=== PATIENT | male | born 1975 | race Caucasian/White ===

== ENCOUNTER 2020-10-13 11:01 | Observation (INO) | payer OTHER ==
[2020-10-13] MEDS ORDERED: KETOROLAC 15 MG/ML 1 ML VIAL IM STA (11:25)
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
--- NOTE | 2020-10-13 12:21 | CT ---
EXAMINATION TYPE: CT brain ulises ellsworth DATE OF EXAM: 10/13/2020 COMPARISON: NONE HISTORY: Fall today with possible injury, headache and neck pain. CT DLP: 1542.8 mGycm. Automated Exposure Control for Dose Reduction was Utilized. TECHNIQUE: CT scan of the head and cervical spine are performed without contrast. FINDINGS: There is no acute intracranial hemorrhage or midline shift identified. The ventricles an d sulci are within normal limits in size for patient's age. The calvarium is intact. Tiny midline oc cipital acute scalp hematoma axial image 50. Tiny right frontal acute scalp hematoma axial image 48. The globes are intact and the visualized sinuses are clear. Nasal septum is deviated to left of midli ne. Cervical spine is visualized in its entirety from C1 through upper thoracic levels and demonstrates s atisfactory alignment without evidence of acute fracture or dislocation. Prevertebral soft tissue ap pears within normal limits. The C1-C2 articulation is within normal limits on the coronal images. V ertebral body heights are maintained. Moderate spurring and disc space narrowing C5-C6 and C6-C7 leve ls. Posterior spurring effaces the anterior thecal sac at these levels on sagittal images. Thyroid gl and is within normal limits. Lung apices show no pneumothorax. IMPRESSION: 1. There is no acute fracture or dislocation evident in the cervical spine. 2. No acute intracranial hemorrhage or midline shift is seen.
--- NOTE | 2020-10-13 12:35 | CT ---
EXAMINATION TYPE: CT lumbar spine wo con DATE OF EXAM: 10/13/2020 12:08 PM COMPARISON: None. HISTORY: Fall today with possible injury. Neck and low back pain. CT DLP: 677.9 mGycm Automated exposure control for dose reduction was used. Unenhanced CT of the lumbar spine was performed. Bone and soft tissue window settings are submitted as well as coronal and sagittal reconstructions. There are 5 lumbar type vertebra identified. There is age-indeterminate suspected acute fracture defo rmity through the anterior superior L3 vertebra small ossific fracture fragment extending anteriorly into the right of midline. There is mild height loss estimated 20-30% along the anterior margin. Post erior vertebral body margin and height are maintained. Alignment is stable and satisfactory. Small po sterior disc herniation L2-L3 and L3-L4 levels effaces the anterior thecal sac on sagittal images candido ng with axial images 32 and 45 respectively. Additional posterior disc herniations mildly effaces ant erior thecal sac at L4-L5 and L5-S1 levels. Paraspinal muscle bulk is maintained. IMPRESSION: Age-indeterminate but suspected acute avulsion type fracture from the anterior superior L 3 endplate with mild height loss estimated 20-30%.
--- NOTE | 2020-10-13 13:29 | XR ---
EXAMINATION TYPE: XR Hip RT and AP Pelvis DATE OF EXAM: 10/13/2020 COMPARISON: NONE HISTORY: Pain after fall injury. TECHNIQUE: A single AP view of the pelvis is obtained. Two views of the right hip are obtained. FINDINGS: There is no acute fracture/dislocation evident in the pelvis. The hip and sacroiliac join ts appear symmetric and felt within normal limits. Pubic symphysis is intact. The overlying soft tis shruthi appears unremarkable. Two views of right hip show no acute fracture or dislocation. No focal lytic or sclerotic lesion see n in the proximal right femur. The overlying soft tissue is unremarkable. IMPRESSION: There is no acute fracture or dislocation in the pelvis or right hip.
[2020-10-13] MEDS ORDERED: ONDANSETRON 4 MG/2 ML VIAL IVP PRN (14:15)
[2020-10-13] MEDS ORDERED: traMADol 50 MG TAB PO PRN (14:15)
[2020-10-13] MEDS ORDERED: NALOXONE 0.4 MG/ML 1 ML VIAL IV PRN (14:15)
[2020-10-13] MEDS ORDERED: ACETAMINOPHEN TAB 325 MG TAB PO PRN (14:15)
[2020-10-13] MEDS ORDERED: CYCLOBENZAPRINE 10 MG TAB PO PRN (14:18)
[2020-10-13] MEDS: HYDROcodone/APAP 5-325MG 1 EACH TAB PO PRN ×2 (14:56→21:45)
[2020-10-13 15:03] LABS: Basophils % (A) 0 %; Eosinophils # (A) 0.1 k/uL (0-0.7); Eosinophils % (A) 1 %; HCT 46.1 % (39.0-53.0); Lymphocytes # (A) 1.5 k/uL (1.0-4.8); Lymphocytes % (A) 26 %; MCH 31.7 pg (25.0-35.0); MCHC 34.7 g/dL (31.0-37.0); MCV 91.2 fL (80.0-100.0); Mean Platelet Volume 6.9; Monocytes # (A) 0.4 k/uL (0-1.0); Monocytes % (A) 6 %; Neutrophils # (A) 3.8 k/uL (1.3-7.7); Neutrophils % (A) 64 %; Platelet Count 216 k/uL (150-450); RBC 5.06 m/uL (4.30-5.90); RDW 11.9 % (11.5-15.5); WBC 5.9 k/uL (3.8-10.6)
[2020-10-13 15:10] LABS: ALT 13 U/L (4-49); AST 21 U/L (17-59); African American GFR (CKD) >90 (>60 ml/min/1.73 sqM); Albumin 4.4 g/dL (3.5-5.0); Alkaline Phosphatase 88 U/L (38-126); Anion Gap 7 mmol/L; Blood Urea Nitrogen 11 mg/dL (9-20); Calcium 9.6 mg/dL (8.4-10.2); Carbon Dioxide 26 mmol/L (22-30); Chloride 104 mmol/L (98-107); Glucose 101 mg/dL (74-99); Non-African American GFR(CKD) >90 (>60 ml/min/1.73 sqM); Potassium 4.6 mmol/L (3.5-5.1); Sodium 137 mmol/L (137-145); Total Bilirubin 0.6 mg/dL (0.2-1.3); Total Protein 6.9 g/dL (6.3-8.2)
[2020-10-13] MEDS ORDERED: GABAPENTIN 300 MG CAP PO STA (15:48)
--- NOTE | 2020-10-13 17:46 | MR ---
EXAMINATION TYPE: MR lumbar spine wo con DATE OF EXAM: 10/13/2020 COMPARISON: CT scan 10/13/2020 HISTORY: Low back pain, L3 fracture, right leg weakness. TECHNIQUE: T1 and T2 axial and sagittal images of the lumbar spine are submitted. FINDINGS: Exam limited by severe patient motion artifact. This results in a limited assessment of the spinal cord on the axial images and sagittal images. No obvious large area of abnormal signal.. [place] nt lesion involving the left iliac bone is not well seen due to motion artifact. At L1-2 there is central disc bulging or broad-based protrusion. There is degenerative disc disease. Neural foramina patent. Mild effacement of thecal sac. At L2-3 there is severe motion artifact limits assessment. Nondiagnostic assessment. A moderate anterior compression fracture L3. Motion artifact limits assessm ent for canal stenosis or retropulsion. At L3-4 there is motion artifact. No obvious disc herniation or canal stenosis. No foraminal encroach ment. At L4-5 there is broad-based disc bulging but no focal herniation or canal stenosis. Mild bilateral f oraminal encroachment. At L5-S1 there is annular tear with facet arthropathy. No Canal stenosis. Central disc bulging. Neura l foramina patent. IMPRESSION: 1. Moderate anterior compression fracture L3. Assessment for retropulsion limited due to extreme vanessa on artifact. 2. Disc bulging L1-2 with effacement of the thecal sac.
[2020-10-13] MEDS: SODIUM CHLORIDE 0.9% 1,000 ML IV SCH (17:56)
[2020-10-13] MEDS: DEXAMETHASONE SOD PHOSPHATE 10 MG/ML 1 ML VIAL IV SCH (17:57)
[2020-10-13] MEDS ORDERED: hydrALAZINE HCL 20 MG/ML 1 ML VIAL IM PRN (18:42)
[2020-10-13] MEDS ORDERED: hydrALAZINE HCL 20 MG/ML 1 ML VIAL IVP PRN ×2 (19:18→20:08)
[2020-10-13] MEDS: KETOROLAC 15 MG/ML 1 ML VIAL IVP PRN (20:25)
[2020-10-14] MEDS: KETOROLAC 15 MG/ML 1 ML VIAL IVP PRN (03:01)
[2020-10-14] MEDS: HYDROcodone/APAP 5-325MG 1 EACH TAB PO PRN ×2 (03:58→19:30)
[2020-10-14] MEDS: SODIUM CHLORIDE 0.9% 1,000 ML IV SCH ×2 (04:02→21:01)
[2020-10-14] MEDS: DEXAMETHASONE SOD PHOSPHATE 10 MG/ML 1 ML VIAL IV SCH (07:56)
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
--- NOTE | 2020-10-14 09:10 | CT ---
EXAMINATION TYPE: CT pelvis wo con DATE OF EXAM: 10/14/2020 COMPARISON: Pelvic and right hip x-ray from yesterday HISTORY: Pain in hips and down legs, recent fall injury CT DLP: 288.8 mGycm Automated exposure control for dose reduction was used. FINDINGS: There is no acute fracture or dislocation in the pelvis or either hip. Symmetric mild axial joint spa ce loss in both hips without significant acetabular spurring. No suspicious joint effusions. Sacroili ac joints are maintained. Pubic symphysis is intact. Prostate gland is not enlarged. No suspicious bowel dilatation. Urinary bladder appears within velia l limits. Small fat-containing right inguinal hernia. No groin adenopathy. Muscle bulk bilateral thig hs is symmetric and within normal limits. IMPRESSION: As above.
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
[2020-10-14] MEDS ORDERED: LACTATED RINGERS 1,000 ML IV ONE (10:55)
[2020-10-14] MEDS ORDERED: fentaNYL (PF) 50 MCG/ML 2 ML AMP ONE (11:03)
[2020-10-14] MEDS ORDERED: IOPAMIDOL M200 10 ML VIAL ONE (11:03)
[2020-10-14] MEDS ORDERED: ROPIVACAINE 5MG/ML 20ML VIAL ONE (11:03)
[2020-10-14] MEDS ORDERED: methylPREDNISolone ACETATE 40 MG/ML 1 ML VIAL ONE (11:03)
--- NOTE | 2020-10-14 11:18 | P.PCN ---
Date of Procedure: 10/14/20 Procedure(s) Performed: PREOPERATIVE DIAGNOSIS: 1- Lumbar Degenerative Disc Diseases 2-Lumbar spondylosis with Facet arthropathy without myelopathy 3-lumbar radiculopathy. 4-right sacroiliitis POSTOPERATIVE DIAGNOSIS: Same as preop diagnosis. PROCEDURE 1. Lumbar epidural steroid injection under fluoroscopic guidance at the L5-S1 level. (Fluoroscopy imaging was available in radiology department) 2. Lumbar epidurogram. 3.right sacroiliac joint steroid injections under fluoroscopy guidance. ANESTHESIA: Local with 1% lidocaine 3 ml and , moderate sedation with intravenous 100 Mcg EBL: Minimal PROCEDURE INDICATION: The patient with low back pain and radiculitis symptoms unresponsive to conservative treatment. Fluoroscopy was used to optimize visualization of the needle placement and to maximize safety. PROCEDURE DESCRIPTION / TECHNIQUE: The patient was seen and identified in the preoperative area. Risks, benefits, complications including but not limited to infections ,bleeding ,allergic reaction to the medications ,nerve damage and not complete pain releife , and alternatives were discussed with the patient. The patient agreed to proceed with the procedure and signed the consent. IV was started, and vital signs were stable. Patient was taken to the OR and time out was completed. The patient was placed in the prone position on procedure table and a pillow was placed under the abdomen to reduce lumbar lordosis. The lumbosacral area was prepped and draped in the usual sterile fashion.ere closely monitored during the procedure. Conscious sedation was used during the procedure to decrease patients anxiety. Vital signs was monitered during the entire procedure. Using anterior-posterior fluoroscopy, the L4-5 interlaminar space was identified and the skin over this site was marked and then infiltrated with 1% lidocaine subcutaneously. Subsequently, a 20-gauge Tuohy epidural needle was inserted and advanced toward the epidural space using the ``Loss of resistance technique and guided by AP and lateral fluoroscopy. The correct needle position in the epidural space was verified with the injection of 2 mL of the water soluble contrast dye Isovue 200 contrast and observing an excellent epidurogram with the epidural spread of the dye, after negative aspiration for blood and CSF and in the absence of paresthesias. Again after negative aspiration, a 6 ml mixture containing 60 mg of Depo-medrol , and 2 ml of preservative free Normal Saline, and 2 ml of preservative free lidocaine 1% solution was injected and a washout of epidurogram was seen. Needle was withdrawn intact, Then under strict sterile technique, I did the right sacroiliac joint the which was identified under fluoroscopy guidance been local infiltration of the skin, and subcu interstitial with lidocaine 1% then 25-gauge Quincke Needle advanced slowly under fluoroscopy and placed in the right sacroiliac joint needle placement confirmed with AP and oblique and lateral view and after appropriate needle placement confirmed and after negative aspiration, or heme , then Ropivacaine 0.5% 3 mL, and 20 mg of Depo-Medrol mixed together and injected in the right sacroiliac joint after negative aspiration patient tolerated the procedure well without any complication.. COMPLICATIONS: None DISPOSITION / PLANS: The patient was placed in a supine position and transferred to the recovery area in a stable condition for observation. There was no evidence of lower extremity motor or sensory deficit after the procedure. Patient was discharged from the recovery room after meeting discharge criteria. Home discharge instructions were given to the patient by the staff. The patient was reexamined prior to discharge. The patient will schedule a follow up in the clinic in 2-4 weeks.
--- NOTE | 2020-10-14 11:55 | FL ---
EXAMINATION TYPE: FL guided pain mgmt statistic DATE OF EXAM: 10/14/2020 CLINICAL HISTORY: Low back and sacroiliac joint pain. TECHNIQUE: Fluoroscopy. COMPARISON: None. FINDINGS: Fluoroscopic guidance was provided during pain relief procedure performed by Dr. Grace . A total of 6 seconds of fluoroscopic time was utilized during the procedure and two spot images ar e acquired. Images acquired shows needle localization at L4 level and sacroiliac joint level with co ntrast injection. IMPRESSION: As Above.
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
[2020-10-15] MEDS: DEXAMETHASONE SOD PHOSPHATE 10 MG/ML 1 ML VIAL IV SCH (09:34)
[2020-10-15] MEDS: SODIUM CHLORIDE 0.9% 1,000 ML IV SCH (09:34)
[2020-10-15] MEDS: HYDROcodone/APAP 5-325MG 1 EACH TAB PO PRN (09:42)
--- NOTE | 2020-10-15 10:11 | P.PN ---
Subjective Progress Note Date: 10/15/20 Principal diagnosis: Low back pain, history of L3 vertebral compression fracture, right-sided sacroiliitis Patient was evaluated today at bedside, he is resting in his hospital bed. She states he has noticed improvement in the low back pain and right sided low back pain/buttock pain. He feels that his legs are moving better since then. Physical therapy will be evaluating patient today. Patient states he did get up with a walker and ambulate to the restroom on his own. He currently denies any numbness or tingling in the lower extremities or upper extremity, changes in bowel or bladder function. Objective - Vital Signs Vital signs: Vital Signs Temp 97.5 F L 10/15/20 04:35 Pulse 63 10/15/20 04:35 Resp 12 10/15/20 04:35 BP 109/70 10/15/20 04:35 Pulse Ox 98 10/15/20 04:35 Intake & Output 10/14/20 10/15/20 10/15/20 18:59 06:59 18:59 Intake Total 300 640 Output Total 1200 1825 Balance -900 -1185 Intake: Intake, IV Titration 300 350 Amount Sodium Chloride 0.9% 1, 300 350 000 ml @ 75 mls/hr IV . [id number] [facility] Rx#:[id number] Oral 290 Output: Urine 1200 1825 Other: Voiding Method Urinal - Exam Gen: AOx3, NAD VSS stable at this time Integument: No obvious skin changes are present throughout the cervical, thoracic or lumbar region. There is no obvious areas of erythema, soft tissue swelling, areas of fluctuance. Palpation: No significant tenderness to palpation involving the cervical and thoracic midline and paraspinal region Mild tenderness with palpation in the L3 midline region, patient also demonstrates discomfort over the SI joint on the right side. No tenderness with palpation of the SI joint on the left-hand side No point tenderness is reproduced with palpation of the bilateral upper extremities, no point tenderness reproducing palpation of the proximal femur, knees, lower leg, foot or ankle bilaterally Vascular status: Radial and ulnar pulses are 2+ bilaterally in the upper extremities Dorsalis pedis pulses are 2+ bilaterally in the lower extremities ROM: Range of motion is intact in all major muscle groups in the bilateral upper and lower extremities. Motion was difficult to assess in the right lower extremity due to the and cuff that was present on the ankle Sensory Exam: Senory exam to light touch is intact C5-T1 Senosry exam to light touch is intact L2-S1 Motor: 55 strength appreciated bilaterally with shoulder abduction, elbow flexion, elbow extension, wrist extension, wrist flexion, finger intrinsics 5 out of 5 strength appreciated left lower extremity, hip flexion, knee extension, knee flexion, plantar flexion, dorsiflexion, EHL, FHL 4-5 strength appreciated right lower extremity, hip flexion, knee extension, knee flexion. 5 out of 5 strength with plantar flexion, dorsiflexion, EHL, FHL Reflexes: 2/4 in all UE and LE Negative Mookie's bilaterally Negative Babinski bilaterally - Labs CBC & Chem 7: 10/13/20 14:45 10/13/20 14:45 Assessment and Plan Assessment: Low back pain, status post L5-S1 epidural injection Right-sided sacroiliitis, status post fluoroscopic steroid injection History of recent fall from standing History of previous L3 vertebral compression fracture, healed and stable No evidence of spinal cord compression Plan: Plan: Patient has continued to improve with the injections he received yesterday. Physical therapy will be evaluating the patient later this morning with gait training No orthopedic surgical intervention recommended at this time Anticipated discharge back to residential today Patient will be instructed utilize the brace as needed with ambulation with walker Other medical record transcriber and recommendations Medications, patient will be discharged on an oral anti-inflammatory and a Medrol Dosepak Time with Patient: Less than 30
[2020-10-15 12:21] VITALS: BP 132/90; PULSE 72; RESP 18; TEMP 98.3
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
--- NOTE | 2020-10-15 15:16 | P.DS ---
Providers Date of admission: 10/13/20 16:07 Attending physician: Zachery Russo DO Consults: 10/13/20 14:16 Consult Physician Routine Consulting Provider: Helio Lewis Consult Reason/Comments: medical consult Do you want consulting provider notified?: Yes 10/14/20 07:48 Consult Physician Routine Consulting Provider: Alda Grace Consult Reason/Comments: possible SI injection Do you want consulting provider notified?: Yes Primary care physician: Stated None Hospital Course: Date of admission: 10/13/2020 Date of discharge: 10/15/2020 Admission diagnosis: Low back pain, right-sided sacroiliitis, history of recent fall, history of L3 vertebral compression fracture Discharge diagnosis: Same Attending physician: Dr. Russo Surgical procedures: L5-S1 epidural steroid injection, right-sided SI joint steroid injection Brief history: Patient is a 45-year-old male who presented to [facility] on 10/13/2020 for evaluation of low back pain after a fall. Currently the shabnam melendez is currently in the [place] long-term, he fell down a few steps. After the fall he noticed increasing pain in his low back. Patient has a history of a vertebral compression fracture at the L3 vertebrae. We were contacted by the emergency room staff, initial imaging test demonstrated no acute fractures or dislocations. Due to symptoms, he was admitted to [facility], an MRI without contrast was ordered of the lumbar spine to rule out any significant areas of compression. Hospital course: Admission to the hospital, the lumbar MRI was done, Dr. Russo was able to review the images and reports. There was no evidence of acute fracture dislocation involving the lumbar spine. There was no significant areas of stenosis involving the lumbar spine. With discontinuation of symptoms, a pain management consult was placed. Pain management then take the patient for a right-sided SI joint steroid injection and a L5-S1 epidural injection. Patient seemed to notice improvement from that treatment. Patient was also placed on gabapentin, IV steroids and anti-inflammatory during his hospital stay which also helped. Patient did receive physical therapy during hospital, this to work on ambulation and gait training. Discharge condition/disposition: Patient will be discharged back to long-term in stable condition. Discharge medications: Instructions are given on resumption of patient's normal daily medications per primary care recommendation, in addition patient will be prescribed Mobic 15 mg, Medrol Dosepak. Discharge instructions: 1. Weight-bear as tolerated 2. Recommend use of LSO brace when ambulating 3. Anti-inflammatory as needed 4. Take Medrol Dosepak as instructed 5. Follow-up with Dr. Russo on an as-needed basis advanced orthopedics, Procedures: L5-S1 epidural injection, right-sided SI joint steroid injection Patient Condition at Discharge: Good Plan - Discharge Summary Discharge Rx Participant: No New Discharge Prescriptions: New methylPREDNISolone Dose Pack [Medrol Dose Pack] 4 mg PO DIRECTED #21 package Meloxicam [Mobic] 15 mg PO DAILY PRN #30 tab PRN Reason: Pain Discharge Medication List Meloxicam [Mobic] 15 mg PO DAILY PRN #30 tab 10/15/20 [Rx] methylPREDNISolone Dose Pack [Medrol Dose Pack] 4 mg PO DIRECTED #21 package 10/15/20 [Rx] Follow up Appointment(s)/Referral(s): None,Stated [Primary Care Provider] - 1-2 days Zachery Russo DO [Doctor of Osteopathic Medicine] - As Needed Patient Instructions/Handouts: Methylprednisolone (By mouth), Meloxicam (By mouth) Activity/Diet/Wound Care/Special Instructions: Discharge instructions: 1. Weight-bear as tolerated 2. Recommend use of LSO brace when ambulating 3. Anti-inflammatory as needed 4. Take Medrol Dosepak as instructed 5. Follow-up with Dr. Russo on an as-needed basis advanced orthopedics, Discharge/Stand Alone Forms: Anes Pain/[place] Instructions Discharge Disposition: DC/TRANSFER COURT/LAW
== END 2020-10-15 16:17 ==
LOC: EC 11:01 → 5NMEDONC 16:07
PROVIDERS: ADMIT Orthopaedic Surgery; ATTEND Orthopaedic Surgery
DX: M47.26 Other spondylosis with radiculopathy, lumbar region (principal); M51.16 Intervertebral disc disorders with radiculopathy, lumbar region; M46.1 Sacroiliitis, not elsewhere classified; R03.0 Elevated blood-pressure reading, without diagnosis of hypertension; F17.200 Nicotine dependence, unspecified, uncomplicated; M53.3 Sacrococcygeal disorders, not elsewhere classified; Z20.822 Contact with and (suspected) exposure to COVID-19; K46.9 Unspecified abdominal hernia without obstruction or gangrene; G89.29 Other chronic pain; M25.561 Pain in right knee; M19.90 Unspecified osteoarthritis, unspecified site; Z91.81 History of falling; W10.9XXA Fall (on) (from) unspecified stairs and steps, initial encounter; Y92.149 Unspecified place in prison as the place of occurrence of the external cause; Z87.828 Personal history of other (healed) physical injury and trauma; Z81.3 Family history of other psychoactive substance abuse and dependence; Z81.8 Family history of other mental and behavioral disorders
CPT/HCPCS: 96376; 96361; 96374; 96375; 96372; 99285; 36415; 97530; 97161; 80053; 85025; 87636; 73502; 72192; 72125; 72131; 70450; 72148; 62323; G0378 ×3; J0360; J1030; J1100 ×3; J3010; J1885 ×2; Q9966; J2795; G0260; 27096

== ENCOUNTER 2020-10-16 16:29 | Emergency (ER) | payer OTHER ==
[2020-10-16 16:34] VITALS: TEMP 98.2
[2020-10-16] MEDS ORDERED: ONDANSETRON 4 MG/2 ML VIAL IVP STA (16:42)
[2020-10-16 16:58] LABS: Basophils % (A) 0 %; Eosinophils % (A) 0 %; HGB 15.5 gm/dL (13.0-17.5); Lymphocytes # (A) 1.7 k/uL (1.0-4.8); Lymphocytes % (A) 21 %; MCH 31.4 pg (25.0-35.0); MCHC 34.6 g/dL (31.0-37.0); MCV 90.8 fL (80.0-100.0); Mean Platelet Volume 7.2; Monocytes # (A) 0.6 k/uL (0-1.0); Monocytes % (A) 7 %; Neutrophils # (A) 5.7 k/uL (1.3-7.7); Neutrophils % (A) 70 %; Platelet Count 224 k/uL (150-450); RBC 4.95 m/uL (4.30-5.90); RDW 11.8 % (11.5-15.5); WBC 8.1 k/uL (3.8-10.6)
[2020-10-16 17:07] LABS: ALT 18 U/L (4-49); AST 24 U/L (17-59); African American GFR (CKD) >90 (>60 ml/min/1.73 sqM); Albumin 4.4 g/dL (3.5-5.0); Alkaline Phosphatase 86 U/L (38-126); Anion Gap 8 mmol/L; Blood Urea Nitrogen 17 mg/dL (9-20); Calcium 9.7 mg/dL (8.4-10.2); Carbon Dioxide 23 mmol/L (22-30); Chloride 107 mmol/L (98-107); Creatine Kinase 81 U/L (55-170); Glucose 114 mg/dL (74-99); Non-African American GFR(CKD) >90 (>60 ml/min/1.73 sqM); Potassium 4.2 mmol/L (3.5-5.1); Sodium 138 mmol/L (137-145); Total Bilirubin 0.5 mg/dL (0.2-1.3); Total Protein 7.1 g/dL (6.3-8.2)
[2020-10-16] MEDS ORDERED: LORazepam 2 MG/ML INJ IV STA (17:09)
[2020-10-16 17:16] LABS: Partial Thromboplastin Time 22.7 sec (22.0-30.0); Prothrombin Time 10.6 sec (9.0-12.0)
--- NOTE | 2020-10-16 17:20 | CT ---
EXAMINATION TYPE: CT thor lumbar spine wo con DATE OF EXAM: 10/16/2020 COMPARISON: 10/13/2020 HISTORY: Back pain. CT DLP: 1454.6 mGycm Automated exposure control for dose reduction was used. FINDINGS: The thoracic vertebral segments are normal in height and alignment and there is no fracture or sublux ation. There is mild disc space narrowing in the upper thoracic spine T5-6 and T6-7 indicating mild d egenerative disc disease. There is mild anterior wedging or compression of the superior endplate of T12 consistent with a mild superior endplate compression fracture of indeterminate age. There is no retropulsion. The lumbar vertebral segments are normal in alignment. There is a moderate but appears to be a chroni c superior endplate compression fracture of L3 without retropulsion in addition there is a large Schm orl's node in the same location. The lumbar disc spaces are well-maintained. There is air within the epidural space the lumbar spine. Question of recent lumbar puncture. The bony spinal canal no lumbar region is normal and there is no definite evidence of spinal stenosis . The facet joints are intact. The sacrum and SI joints are normal. No large lumbar disc herniations are seen. IMPRESSION: 1. Questionable mild superior endplate compression fracture of T12 of indeterminate age. There is no retropulsion. 2. Mild degenerative disc disease in the upper thoracic spine. 3. Moderate superior endplate compression fracture and Schmorl's node at L3. Appears to be chronic in nature. There is no retropulsion. 4. No spinal stenosis the thoracic and lumbar region. 5. Air within the epidural space the lumbar region resulting question of recent lumbar puncture or ep idural injection.
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
[2020-10-16 18:53] VITALS: BP 144/118; PULSE 75; RESP 18
== END 2020-10-16 20:10 | disposition home or self-care (01) ==
LOC: EC 16:29
DX: T41.291A Poisoning by other general anesthetics, accidental (unintentional), initial encounter (principal); M54.9 Dorsalgia, unspecified; F17.200 Nicotine dependence, unspecified, uncomplicated; F12.90 Cannabis use, unspecified, uncomplicated; F14.90 Cocaine use, unspecified, uncomplicated
CPT/HCPCS: 36415; 93005; 80053; 82550; 84484; 85025; 85610; 85730; 72128; 72131; 99285; 96374; 96375; J2060; J2405

== ENCOUNTER 2020-11-03 17:07 | Emergency (ER) | payer OTHER ==
[2020-11-03 17:18] VITALS: RESP 16
[2020-11-03] MEDS ORDERED: KETOROLAC 15 MG/ML 1 ML VIAL IVP STA (18:09)
[2020-11-03 19:06] LABS: Basophils % (A) 0 %; Eosinophils % (A) 0 %; HCT 48.8 % (39.0-53.0); HGB 15.9 gm/dL (13.0-17.5); Lymphocytes # (A) 0.5 k/uL (1.0-4.8); Lymphocytes % (A) 7 %; MCH 29.8 pg (25.0-35.0); MCHC 32.6 g/dL (31.0-37.0); MCV 91.6 fL (80.0-100.0); Mean Platelet Volume 7.2; Monocytes # (A) 0.1 k/uL (0-1.0); Monocytes % (A) 2 %; Neutrophils # (A) 6.2 k/uL (1.3-7.7); Neutrophils % (A) 90 %; Platelet Count 205 k/uL (150-450); RBC 5.33 m/uL (4.30-5.90); RDW 12.7 % (11.5-15.5); WBC 6.9 k/uL (3.8-10.6)
[2020-11-03 19:07] LABS: Appearance,Urine Clear (Clear); Bilirubin,Urine Negative (Negative); Blood,Urine Negative (Negative); Color,Urine Yellow; Glucose,Urine (UA) Negative (Negative); Ketones,Urine Negative (Negative); Leukocyte Esterase,Urine Small (Negative); Mucus,Urine Occasional /hpf; Nitrite,Urine Negative (Negative); Protein,Urine Negative (Negative); RBC,Urine 3 /hpf (0-5); Specific Gravity,Urine 1.021 (1.001-1.035); Urobilinogen,Urine <2.0 mg/dL (<2.0); WBC,Urine 1 /hpf (0-5)
[2020-11-03 19:20] LABS: ALT 14 U/L (4-49); AST 24 U/L (17-59); African American GFR (CKD) >90 (>60 ml/min/1.73 sqM); Albumin 4.6 g/dL (3.5-5.0); Alkaline Phosphatase 85 U/L (38-126); Anion Gap 10 mmol/L; Blood Urea Nitrogen 12 mg/dL (9-20); C Reactive Protein 0.7 mg/dL (<1.0); Carbon Dioxide 22 mmol/L (22-30); Chloride 106 mmol/L (98-107); Glucose 142 mg/dL (74-99); Non-African American GFR(CKD) >90 (>60 ml/min/1.73 sqM); Potassium 4.5 mmol/L (3.5-5.1); Sodium 138 mmol/L (137-145); Total Bilirubin 0.5 mg/dL (0.2-1.3); Total Protein 7.1 g/dL (6.3-8.2)
[2020-11-03] MEDS ORDERED: SODIUM CHLORIDE 0.9% 500 ML 500 ML IV ONE (19:30)
[2020-11-03] MEDS ORDERED: HYDROcodone/APAP 5-325MG 1 EACH TAB PO STA (19:30)
[2020-11-03] MEDS ORDERED: SODIUM CHLORIDE 0.9% 500 ML 500 ML IV STA (19:31)
[2020-11-03] MEDS ORDERED: DEXAMETHASONE SOD PHOSPHATE 10 MG/ML 1 ML VIAL IV STA (19:34)
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
[2020-11-03 20:17] VITALS: BP 119/88; PULSE 81; TEMP 99.1
== END 2020-11-03 20:15 | disposition home or self-care (01) ==
LOC: EC 17:07
DX: M54.5 Low back pain (principal); G89.29 Other chronic pain; M79.605 Pain in left leg; M79.604 Pain in right leg; F17.200 Nicotine dependence, unspecified, uncomplicated; F12.90 Cannabis use, unspecified, uncomplicated; F14.90 Cocaine use, unspecified, uncomplicated
CPT/HCPCS: 36415; 80053; 83605; 85025; 86140; 81001; 99283; 96374; 96375; J1100; J1885